=== PATIENT | male | born 1980 | race Caucasian/White ===

== ENCOUNTER → 2024-03-21 13:35 | Outpatient (REF) | payer BC, SELFPAY | LOC: RAD 13:35 | PROVIDERS: ATTENDING PHYSICIAN Internal Medicine | DX: M54.2 Cervicalgia (principal) | CPT/HCPCS: 72040 ==

== ENCOUNTER 2024-03-23 21:02 | Emergency (ER) | payer BC, SELFPAY ==
[2024-03-23 21:06] VITALS: BP 164/100
[2024-03-24 00:12] VITALS: BMI 28.8
--- NOTE | 2024-03-24 00:14 | EDRN ---
Pt having discomfort where neck/head meet - heat/vertigo/forgetfulness and pressure in his ears. Pt injured this area early January when he dove in water. Area was stiff for couple days. Last 1-2 weeks, discomfort has been constant. Pt went to
family doctor and had blood work - lyme negative. Pt had xray Tuesday of cspine. Pt put kids to bed tonight and says discomfort increased. Pt taking 2 advil BID which helped - last dose yesterday. Pt has been massaging area and feels it is
improving.
[2024-03-24 00:20] VITALS: BP 116/71
--- NOTE | 2024-03-24 01:11 | ED.GENMED ---
History of Present Illness
General
Chief Complaint: Headache
Source: patient
Exam Limitations: none
Time Seen by Provider: 03/24/24 00:46
History of Present Illness
History of Present Illness:
See MDM
Past History
Past History
ED Past Medical History: None
ED Past Surgical History: None
Social History
Tobacco: Non-smoker
Alcohol: None
Phy Exam
Physical Exam
Physical Exam:
See MDM
Course
Orders/Labs/Results
Orders:
Orders
03/24/24 01:08
CT Cervical Spine W/o Iv Contr Urgent
Comment:
Reason For Exam: neck pain after fall
CT Head W/o Iv Contrast Urgent
Comment:
Reason For Exam: headache after fall
Gabapentin [Neurontin] 100 mg PO NOW STA
Vital Signs
Initial and Last Documented VS:
Initial Vital Signs
Temp Pulse Resp BP Pulse Ox
98.4 F 82 16 164/100 97
03/23/24 21:06 03/23/24 21:06 03/23/24 21:06 03/23/24 21:06 03/23/24 21:06
Last Documented Vital Signs
Temp Pulse Resp BP Pulse Ox
98.4 F 74 16 116/71 97
03/23/24 21:06 03/24/24 00:20 03/24/24 00:20 03/24/24 00:20 03/24/24 00:20
MDM/Problems Addressed
Differential Diagnosis Includes:
HPI and MDM Narrative:
43-year-old male presenting with persistent headache and neck pain. About 2 months ago, patient was diving into a pool and hit the bottom of the pool with his head. Since then, he has been having headache and neck pain. He describes the back part
of his neck as a burning sensation. He denies any numbness or tingling. He has intermittent confusion. He had outpatient neck x-ray few days ago which showed straightening of the lordotic curve
Given his persistent symptoms, will obtain CT head and neck
Physical exam
General: Well appearing and non-toxic
HEENT: protecting airway
Neck: supple. Mild tenderness along C2 and inion. No tenderness to carotid palpation
CV: No evidence of cyanosis
Resp: No accessory muscle use
Abd: Non-distended
Extremities: No deformities
Neuro: alert. No focal deficits. Range of motion and muscle strength appear to be intact and all 4 extremities
Psych: Normal affect
Skin: Intact
Problems Addressed including Acute and Chronic Conditions affecting care:
1. Headache and neck pain status post injury
Acuity: subacute
Prognosis: stable
Details: Given persistent symptoms, will obtain CT head and neck. Given the burning sensation in his neck, discussed likely nerve irritation. Will give dose of gabapentin
Updates
CT head negative. CT shows evidence of straightening of lordotic curve. Given his ongoing symptoms, we discussed muscle relaxants and possible postconcussive syndrome
Differential Diagnosis (but not limited to): Herniated disc, concussion, cervical fracture
Testing considered: MRI but discussed having this done as an outpatient
Drug therapy (if applicable): OTC meds, please see d/c instruction regarding Rx drugs
Amount and/or Complexity of Data Reviewed
Clinical info obtained from: Patient
External data reviewed: Outpatient x-ray shows straightening of cervical lordosis
Labs I independently reviewed (but not limited to): N/A
Radiology: The CT scan was personally and independently reviewed. In addition, official CT report reviewed.
Pulse Ox: not hypoxic
EKG independently reviewed: N/A
Felled Seam Operator: N/A
Critical Care: N/A
Risk of Complication:
Social Determinants of health: Good social support
Discussed with other providers: N/A
Escalation of Care includes Admit/Obs: After being observed in the Emergency Department, pt stable for discharge.
Occasional wrong word or 'sound a like' substitutions may have occurred due to the inherent limitations of voice recognition software. Read the chart carefully and recognize, using context, where substitutions have occurred.
*Critical Care Note
Total Time (30-74mins, 75-104mins- exclusive of procedures): Not Applicable
ED Attending Note
-
Portions of this chart may have been created with voice recognition software.� Occasional wrong word or��sound alike� substitutions may have occurred due to the inherent limitations of voice recognition software.
Discharge Plan
Departure
Patient Disposition: Home (Routine Discharge)
Date of Disposition: 03/24/24
Time of Disposition: 03:17
Patient with high blood pressure during this ER visit?: No
Discharge Problem:
Cervical strain
Instructions: Neck Sprain (DC)
Prescriptions:
New
metaxalone 800 mg tablet
800 mg PO TID PRN (Reason: muscle pain) Qty: 14 0RF
gabapentin 100 mg capsule
100 mg PO BID Qty: 14 0RF
No Action
multivitamin Tablet
1 tab PO DAILY
simvastatin 20 mg Tablet
20 mg PO DAILY
amlodipine-benazepril 10-20 mg Capsule
1 cap PO DAILY
Referrals:
Brian Boucher MD [Family Provider] -
Activity Restrictions/Additional Instructions:
Please return for any worsening symptoms.
You may return at any time if you have further concerns.
Please follow up with your doctor at the first available appointment, preferably this week.
Thank you for choosing [facility].
Interventions
Interventions:
*Risk Screen - Suicide Last Done: 03/23/24 21:06
*General Assessment Last Done: 03/23/24 21:06
*Neglect/Abuse Screening Last Done: 03/23/24 21:06
*ED COVID-19 Vaccine History Last Done: 03/23/24 21:06
ED- Neurological Assessment Last Done: 03/24/24 00:25
Discharge Date and Time
Print Language: SPANISH
[2024-03-24] MEDS: NEURONTIN 100 MG PO (03:28)
[2024-03-24 03:34] VITALS: BP 140/92
== END 2024-03-24 03:36 | disposition home or self-care (01) ==
LOC: EMR 21:02
PROVIDERS: EMERGENCY PHYSICIAN Student in an Organized Health Care Education/Training Program; FAMILY PHYSICIAN Internal Medicine
DX: S16.1XXA Strain of muscle, fascia and tendon at neck level, initial encounter (principal); X58.XXXA Exposure to other specified factors, initial encounter; G93.5 Compression of brain
CPT/HCPCS: 99284; 70450; 72125

== ENCOUNTER 2024-12-02 23:57 | Emergency (ER) | payer BC, SELFPAY ==
[2024-12-03 00:17] VITALS: BP 160/108
[2024-12-03 00:46] LABS: % Basophils 0.1 % (0-2); % Eosinophils 0.3 % (0-6); % Immature Granulocytes 0.2 % (0-0.5); % Lymphocytes 21.7 % (20.5-51.1); % Monocytes 7.1 % (1.7-9.3); % Neutrophils 70.6 % (42.2-75.2); Absolute Lymphocytes 2.2 10^3/uL (1.2-3.4); Absolute Monocytes 0.7 10^3/uL (0.1-0.6); Absolute Neutrophils 7.1 10^3/uL (1.4-6.5); Hematocrit 44.2 % (39.0-52.0); Hemoglobin 14.6 g/dL (13.0-18.0); Mean Corpuscular Hgb 30.2 pg (27.0-31.0); Mean Corpuscular Volume 91.5 fL (80.0-94.0); Mean Platelet Volume 10.4 fL (7.4-10.4); Nucleated Red Blood Cells % 0 % (-); Platelet Count 263 10^3/uL (130-400); Red Blood Cell Count 4.83 10^6/uL (4.70-6.10); Red Cell Dist. Width 13.2 % (11.5-14.5)
[2024-12-03 00:58] LABS: Amphetamines Negative (Negative); Barbiturates Negative (Negative); Benzodiazepines Negative (Negative); Buprenorphine Negative (Negative); Cocaine Negative (Negative); Marijuana Negative (Negative); Methadone Negative (Negative); Methamphetamines Negative (Negative); Opiates Negative (Negative); Phencyclidine Negative (Negative); Tricyclic Antidepressants Negative (Negative)
[2024-12-03 01:02] LABS: Alcohol None Detected; Blood Urea Nitrogen 16 mg/dl (9-20); Carbon Dioxide 27 mmol/L (22-30); Chloride 102 mmol/L (98-107); Glucose 120 mg/dl (70-99); Potassium 4.2 mmol/L (3.5-5.1); Sodium 140 mmol/L (135-145); eGFR > 60.00
[2024-12-03 01:11] VITALS: BMI 28.2
[2024-12-03 01:20] VITALS: BP 181/88
[2024-12-03 02:10] LABS: ALT (SGPT) 34 U/L (0-50); AST (SGOT) 45 U/L (17-59); Albumin 5.5 g/dl (3.5-5.0); Alkaline Phosphatase 53 U/L (38-126); Direct Bilirubin 0.4 mg/dl (0.0-0.4); Total Bilirubin 1.1 mg/dl (0.2-1.3); Total Protein 8.2 g/dl (6.3-8.2)
--- NOTE | 2024-12-03 03:06 | ED.GENMED ---
History of Present Illness
<BONNIE Dominguez - Last Filed: 12/03/24 03:17>
General
Chief Complaint: Alcohol Problem
Source: patient
Exam Limitations: none
Time Seen by Provider: 12/03/24 02:55
History of Present Illness
History of Present Illness:
Pt is a 44 yo M with a PMH of HTN, HLD, who presents to the ER c/o alcohol withdrawal symptoms x 5 days. Patient explains that he decided he had been drinking too much, says he drank a variety of different kinds of drinks, whatever was in the house,
anywhere from 5 nights per week to daily. Patient is unable to quantify amounts of alcohol consumed, or truly specify types. He stopped all alcohol on 11/25/2024, which he states he has done before for brief periods without issues. He felt well in the
beginning of the week, but on Tuesday noticed a subtle tremor in b/l hands, which persists through today. Last night, patient reports he was unable to sleep and his mind was racing. he was twitching, and overall was unable to rest. He went to
urgent care today and was given Gabapentin 300 mg PO QID, of which he took two doses. He did not feel it was largely helpful in resolving his tremor. He denies N/V/D, changed in mental status, dizziness, weakness.
Past History
<BONNIE Dominguez - Last Filed: 12/03/24 03:17>
Past History
ED Past Medical History: None
ED Past Surgical History: None
Social History
Tobacco: Non-smoker
Alcohol: None
Review of Systems
<BONNIE Dominguez - Last Filed: 12/03/24 03:17>
Review of Systems
All Other Systems: ROS reviewed and negative except as documented in HPI and ROS
Phy Exam
<BONNIE Dominguez - Last Filed: 12/03/24 03:17>
General Physical Exam
General Presentation: well appearing and no apparent distress
General age: appears stated age
General Skin: warm
General Habitus: normal
General Mental: alert
General Hydration: appears well hydrated
Cardiovascular Exam
Cardiovascular Exam: regular rate/rhythm
Heart Sounds: normal
Pulmonary Exam
Pulmonary Exam: lungs clear
Psychiatric Exam
Psychiatric Exam: anxious
Scores
<Wendy Cobb [facility] - Last Filed: 12/03/24 03:17>
Withdrawal Assessment of Alcohol
Withdrawal Assessment Completed?: Yes
Nausea and Vomiting: No nausea and no vomiting
Tactile Disturbances: None
Tremor: Not visible, but can be felt fingertip to fingertip
Auditory Disturbances: Not present
Paroxysmal Sweats: No sweat visible
Visual Disturbances: Not present
Anxiety: Mild anxiety
Headache, Fullness in Head: Not present
Agitation: Normal activity
Orientation and clouding of sensorium: Oriented and can do serial additions
Total CIWA Score: 2
Alcohol Withdrawal Medication Recommendation: Equal to MSAS Score 0-4. Monitor & re-assess q2hrs, NO MEDICATION NEEDED
<Joi Mead DO - Last Filed: 12/03/24 03:39>
Withdrawal Assessment of Alcohol
Total CIWA Score: 2
Alcohol Withdrawal Medication Recommendation: Equal to MSAS Score 0-4. Monitor & re-assess q2hrs, NO MEDICATION NEEDED
Course
<ST AlbertoNH - Last Filed: 12/03/24 03:17>
Orders/Labs/Results
Orders:
Orders
12/03/24 00:35
Alcohol Urgent
Basic Metabolic Panel Urgent
Complete Blood Count/With Diff Urgent
Unxht-Qqzq-Xjczykh Urgent
Comment: ADD ON
Urine Drug Abuse Screen Urgent
Date Specimen was Collected: 12/03/24
Time Specimen was Collected: 00:21
12/03/24 01:23
Add On- LAB Urgent
Comments:: blood in lab
Tests Added?: liver function add on to BMP please
Abnormal Lab Results
12/03/24
00:35
Absolute Neuts (auto) 7.1 H 10^3/uL
(1.4-6.5)
Absolute Monos (auto) 0.7 H 10^3/uL
(0.1-0.6)
Glucose 120 H mg/dl
(70-99)
Albumin 5.5 H g/dl
(3.5-5.0)
12/03/24 00:35
12/03/24 00:35
Vital Signs
Initial and Last Documented VS:
Initial Vital Signs
Temp Pulse Resp BP Pulse Ox
97.2 F 100 20 160/108 98
12/03/24 00:17 12/03/24 00:17 12/03/24 00:17 12/03/24 00:17 12/03/24 00:17
Last Documented Vital Signs
Temp Pulse Resp BP Pulse Ox
97.4 F 83 16 149/91 98
12/03/24 01:20 12/03/24 03:10 12/03/24 03:10 12/03/24 03:10 12/03/24 03:10
<Joi Mead, DO - Last Filed: 12/03/24 03:39>
Orders/Labs/Results
Orders:
Orders
12/03/24 00:35
Alcohol Urgent
Basic Metabolic Panel Urgent
Complete Blood Count/With Diff Urgent
Mnaqd-Vkgu-Oydsrfy Urgent
Comment: ADD ON
Urine Drug Abuse Screen Urgent
Date Specimen was Collected: 12/03/24
Time Specimen was Collected: 00:21
12/03/24 01:23
Add On- LAB Urgent
Comments:: blood in lab
Tests Added?: liver function add on to BMP please
Abnormal Lab Results
12/03/24
00:35
Absolute Neuts (auto) 7.1 H 10^3/uL
(1.4-6.5)
Absolute Monos (auto) 0.7 H 10^3/uL
(0.1-0.6)
Glucose 120 H mg/dl
(70-99)
Albumin 5.5 H g/dl
(3.5-5.0)
12/03/24 00:35
12/03/24 00:35
Vital Signs
Initial and Last Documented VS:
Initial Vital Signs
Temp Pulse Resp BP Pulse Ox
97.2 F 100 20 160/108 98
12/03/24 00:17 12/03/24 00:17 12/03/24 00:17 12/03/24 00:17 12/03/24 00:17
Last Documented Vital Signs
Temp Pulse Resp BP Pulse Ox
97.4 F 83 16 149/91 98
12/03/24 01:20 12/03/24 03:10 12/03/24 03:10 12/03/24 03:10 12/03/24 03:10
<BONNIE Dominguez - Last Filed: 12/03/24 03:17>
*Critical Care Note
Total Time (30-74mins, 75-104mins- exclusive of procedures): Not Applicable
ED Attending Note
<BONNIE Dominguez - Last Filed: 12/03/24 03:17>
-
Portions of this chart may have been created with voice recognition software.� Occasional wrong word or��sound alike� substitutions may have occurred due to the inherent limitations of voice recognition software.
<Joi Mead DO - Last Filed: 12/03/24 03:39>
ED Attending Note
Patient seen and examined by attending physician: Yes
I performed the substantive portion of visit, reviewed & personally made and approve the management plan that is documented in note by myself or MÓNICA.: Yes
ED Attending Note:
This is a 44-year-old gentleman with history of hypertension as well as history of sporadic alcohol binge drinking admits to moderate alcohol consumption perhaps 4 days/week over a number of weeks to months. He generally can stop drinking alcohol
without side effects until most recently he stopped his alcohol consumption completely 1 week ago and along with this has started an exercise regimen, working out quite vigorously over the past 4 days. He complains of difficulty sleeping over the
past 2 nights with intermittent mild tremor of his hands over the past few days. He admits that he is quite worried, anxious that he is going through alcohol withdrawal, concern for electrolyte or vitamin deficiency. He was concerned for
Wernicke's Korsakoff's encephalopathy, worried that he may need IV fluids, worried that he may need IV thiamine. He admits that he has been 'googling his symptoms' throughout the week
He has had no vomiting, no abdominal no chest pain. No lapse in consciousness. He denies drug use and has remained sober for more than a week now. He has been drinking electrolyte replacement drinks.
He presented to urgent care yesterday where he was prescribed gabapentin. He took 2 doses today and thus far has had no improvement.
History of hypertension maintained on amlodipine/valsartan.
44-year-old gentleman appears his stated age, awake and alert, mildly anxious, easily communicative, oriented x 3.
He appears euvolemic. Oral mucosa is moist.
Heart is regular rate and rhythm without tachycardia.
Awake alert and oriented x 3. No asterixis. There is ever so slight intermittent minimal tremor noted of the left ring digit only when hands are held out stiffly for somewhat prolonged period. Otherwise no tremor appreciated.
Patient has no evidence of alcohol withdrawal. Has been reassured that I suspect his intermittent mild tremor of his hands is more muscle fatigue in nature as he has been doing extensive exercise over the week.
Labs are all reassuring and within normal limits.
He has had no vomiting, tolerating oral fluids well, no indication for IV fluids and no indication for vitamin supplementation.
I do suspect significant amount of anxiety, worry over his general health.
Encouraged to remain sober, continue with his exercise regimen, stay well-hydrated on a daily basis and overall I suspect with tincture of time he overall should start to feel better and sleep should improve.
He is requesting medication for anxiety and I recommend we avoid potentially addictive medication such as a benzodiazepine but agreeable to trial a short course of as needed hydroxyzine.
Encouraged prompt follow-up with PCP for recheck.
Discharge Plan
Departure
Patient Disposition: Home (Routine Discharge)
Date of Disposition: 12/03/24
Time of Disposition: 03:27
Patient with high blood pressure during this ER visit?: No
Condition: Good
Discharge Problem:
Alcohol use disorder, mild, in early remission, Anxiety disorder
Instructions: Anxiety, Adult (DC), Alcohol Use Disorder (DC)
Prescriptions:
New
hydroxyzine HCl 50 mg tablet
50 mg PO BID PRN (Reason: anxiety) Qty: 20 0RF
No Action
multivitamin Tablet
1 tab PO DAILY
simvastatin 20 mg Tablet
20 mg PO DAILY
ondansetron 4 mg Tablet,Disintegrating
4 mg PO Q8H PRN (Reason: nausea)
amlodipine-valsartan 10-160 mg Tablet
1 tab PO DAILY
gabapentin 100 mg capsule
300 mg PO QID
Referrals:
Brian Boucher MD [Family Provider] - Call in 1-3 days for appt
Interventions
Interventions:
*Risk Screen - Suicide Last Done: 12/03/24 00:17
*General Assessment Last Done: 12/03/24 01:21
*Neglect/Abuse Screening Last Done: 12/03/24 00:17
*ED- Fall Risk Assessment Last Done: 12/03/24 01:21
*ED COVID-19 Vaccine History Last Done: 12/03/24 01:21
ED- Neurological Assessment Last Done: 12/03/24 01:30
ED-Psychological Assessment Last Done: 12/03/24 01:30
Discharge Date and Time
Print Language: BULGARIAN
[2024-12-03 03:10] VITALS: BP 149/91
== END 2024-12-03 03:40 | disposition home or self-care (01) ==
LOC: EMR 23:57
PROVIDERS: EMERGENCY PHYSICIAN Emergency Medicine; FAMILY PHYSICIAN Internal Medicine
DX: F10.11 Alcohol abuse, in remission (principal); F41.9 Anxiety disorder, unspecified; R25.1 Tremor, unspecified; I10 Essential (primary) hypertension; E78.5 Hyperlipidemia, unspecified
CPT/HCPCS: 99283; 80048; 80076; 80306; 82077; 85025